=== PATIENT | female | born 1980 | race Caucasian/White ===

== ENCOUNTER 2017-11-17 08:27 | Observation (INO) ==
[~2017-11-17 08:27] MED LIST: cefOXitin 3,000 MG in SYRINGE 1 EACH IV ONE
[2017-11-17] MEDS ORDERED: SCOPOLAMINE 1.5 MG PATCH TRANSDERM ONE ×3 (08:48→09:30)
[2017-11-17] MEDS ORDERED: HYOSCYAMINE 0.125 MG TABLET ONE (08:48)
[2017-11-17] MEDS ORDERED: PANTOPRAZOLE 40 MG VIAL IV ONE ×2 (08:49→10:00)
[2017-11-17] MEDS ORDERED: HEPARIN 5,000 UNIT/1 ML VIAL ONE (08:49)
[2017-11-17] MEDS ORDERED: ACETAMINOPHEN 1,000 MG/100 ML VIAL IV ONE (08:49)
[2017-11-17] MEDS: LACTATED RINGERS 1,000 ML IV SCH ×5 (08:55→19:20)
[2017-11-17] MEDS ORDERED: DIAZEPAM 5 MG TABLET ONE (09:15)
[2017-11-17 09:17] LABS: Basophils # 0.1 10*3/uL (0.0-0.2); Basophils % 0.8 % (0.0-0.8); Eosinophils # 0.2 10*3/uL (0.0-0.87); Eosinophils % 2.9 % (0.00-10.9); Hematocrit 36.8 VOL% (35.7-47.0); Hemoglobin 11.7 GM/DL (12.0-16.0); Immature Granulocytes % 0.3 %; Immature Granulocytes Absolute 0.02 #; Lymphocytes # 1.5 10*3/uL (1.4-4.0); Lymphocytes % 23.5 % (21.3-54.2); Mean Corpuscular HGB Conc 31.8 GM/DL (32-36); Mean Corpuscular Hemoglobin 27 PG (27-34); Mean Corpuscular Volume 83.4 FL (87-102); Mean Platelet Volume 9.7 FL (9.6-12.0); Monocytes # 0.4 10*3/uL (0.11-0.8); Monocytes % 5.9 % (1.7-12.7); Neutrophils # 4.2 10*3/uL (1.4-7.4); Neutrophils % 66.6 % (38.7-73.9); Platelet Count 274 T/CUMM (130-400); Red Blood Count 4.41 MC/CUMM (3.8-5.5); White Blood Count 6.3 T/CUMM (4-12)
[2017-11-17] MEDS ORDERED: DIAZEPAM 5 MG TABLET PO ONE (09:27)
[2017-11-17 09:30] LABS: Calcium 8.8 MG/DL (8.5-10.1); Osmolality,Calculated 278.5 MOS/KG (273-304)
[2017-11-17] MEDS ORDERED: BUPIVACAINE 0.25% /EPI 10 ML VIAL ONE (09:39)
[2017-11-17] MEDS ORDERED: LIDOCAINE 1%/EPI INJ 20 ML VIAL ONE (09:39)
[2017-11-17] MEDS ORDERED: TISSUE ADHESIVE 1 EACH APPLICATOR TOP ONE (09:39)
[2017-11-17] MEDS ORDERED: BUPIVACAINE LIPOSOMAL 20 ML/266 MG VIAL ONE (09:39)
[2017-11-17] MEDS ORDERED: HEPARIN 5,000 UNIT/1 ML VIAL SUBCUT ONE (10:00)
[2017-11-17] MEDS ORDERED: ACETAMINOPHEN INJ 1,000 MG in PREMIX 1 EACH IV ONE (10:00)
[2017-11-17] MEDS ORDERED: HYOSCYAMINE 0.125 MG TABLET SL ONE (10:00)
[2017-11-17] MEDS ORDERED: ONDANSETRON 4 MG/2 ML VIAL IV PRN (10:06)
[2017-11-17] MEDS ORDERED: hydrALAZINE 20 MG/1 ML VIAL IV PRN (10:06)
[2017-11-17] MEDS ORDERED: fentaNYL 100 MCG/2 ML VIAL ONE (12:22)
[2017-11-17] MEDS ORDERED: PROPOFOL 200 MG/20 ML VIAL IV ONE (12:22)
[2017-11-17] MEDS ORDERED: DEXAMETHASONE 10 MG/1 ML VIAL ONE (12:22)
[2017-11-17] MEDS ORDERED: SEVOFLURANE 1 UNIT/15 MINUTE INH ONE (12:22)
[2017-11-17] MEDS ORDERED: MIDAZOLAM 2 MG/2 ML VIAL ONE (12:22)
[2017-11-17] MEDS ORDERED: KETOROLAC 30 MG/1 ML VIAL ONE (12:23)
[2017-11-17] MEDS ORDERED: ROCURONIUM 100 MG/10 ML VIAL IV ONE (12:23)
[2017-11-17] MEDS ORDERED: GLYCOPYRROLATE 0.4 MG/2 ML VIAL ONE (12:23)
[2017-11-17] MEDS ORDERED: PHENYLEPHRINE 10 MG/1 ML VIAL IV ONE (12:23)
[2017-11-17] MEDS ORDERED: NEOSTIGMINE 10 MG/10 ML VIAL ONE (12:23)
[2017-11-17] MEDS ORDERED: ONDANSETRON 4 MG/2 ML VIAL ONE (12:23)
[2017-11-17] MEDS ORDERED: LACTATED RINGERS 2,000 ML IV ONE (12:23)
[2017-11-17] MEDS ORDERED: SUCCINYLCHOLINE 200 MG/10 ML VIAL ONE (12:23)
[2017-11-17] MEDS: MORPHINE 4 MG/1 ML VIAL IV PRN ×2 (13:58→17:34)
[2017-11-17] MEDS: ceFAZolin 2,000 MG in PREMIX 1 EACH IV SCH (17:34)
[2017-11-17] MEDS: HYDROcod/ACETAMIN 7.5-325 MG/15 ML UDCUP PO PRN (20:58)
[2017-11-18] MEDS ORDERED: ceFAZolin 2,000 MG in PREMIX 1 EACH IV SCH (03:00)
[2017-11-18] MEDS: ceFAZolin 2,000 MG in PREMIX 1 EACH IV SCH (03:04)
[2017-11-18] MEDS: LACTATED RINGERS 1,000 ML IV SCH (03:26)
[2017-11-18] MEDS: HYDROcod/ACETAMIN 7.5-325 MG/15 ML UDCUP PO PRN (03:32)
[2017-11-18 05:55] LABS: Basophils % 0.2 % (0.0-0.8); Hematocrit 34.4 VOL% (35.7-47.0); Hemoglobin 11.5 GM/DL (12.0-16.0); Immature Granulocytes % 0.6 %; Immature Granulocytes Absolute 0.07 #; Lymphocytes # 1.1 10*3/uL (1.4-4.0); Lymphocytes % 9.2 % (21.3-54.2); Mean Corpuscular HGB Conc 33.4 GM/DL (32-36); Mean Corpuscular Hemoglobin 27 PG (27-34); Mean Corpuscular Volume 80.8 FL (87-102); Monocytes # 0.7 10*3/uL (0.11-0.8); Monocytes % 6.2 % (1.7-12.7); Neutrophils # 9.8 10*3/uL (1.4-7.4); Neutrophils % 83.8 % (38.7-73.9); Platelet Count 302 T/CUMM (130-400); Red Blood Count 4.26 MC/CUMM (3.8-5.5); Red Cell Distribution Width 13.9 % (9.3-17.3); White Blood Count 11.6 T/CUMM (4-12)
[2017-11-18 06:05] LABS: Calcium 8.9 MG/DL (8.5-10.1); Osmolality,Calculated 280.3 MOS/KG (273-304); Potassium 4.5 MMOL/L (3.5-5.1)
[2017-11-18 08:00] VITALS: BP 106/51
[2017-11-18] MEDS ORDERED: PANTOPRAZOLE 40 MG VIAL IV SCH (09:00)
[2017-11-18] MEDS ORDERED: SIMETHICONE CHEW 80 MG TABLET PO SCH (10:06)
[2017-11-19] MEDS ORDERED: ENOXAPARIN 40 MG/0.4 ML SYRINGE SUBCUT SCH (09:00)
== END 2017-11-18 11:35 | disposition home or self-care (01) ==
LOC: N.SDSINP 08:27 → N.OR 08:27 → N.SDSINP 08:28 → N.3E 13:32
PROVIDERS: ADMIT Surgery; ATTEND Surgery